=== PATIENT | male | born 1985 | race American Indian/Alaskan Native ===

== ENCOUNTER 2022-01-10 21:16 | Emergency (ER) | payer OTHER ==
[~2022-01-10] VITALS: Ht 167.6 cm; Wt 98.9 kg
[2022-01-10 21:31] VITALS: BP 178/99
--- NOTE | 2022-01-10 21:36 | NUR ---
PT TAKEN TO BED 3.
--- NOTE | 2022-01-10 22:16 | NUR ---
JIMMY, FLU AND STREP SWABS COLLECTED AND WALKED TO LAB
--- NOTE | 2022-01-10 23:05 | NUR ---
36 Y.O. M BIB SELF C/O SORE THROAT X2HRS. STATE HR IS ALWAYS ELEVATED D/T [place]. DRY COUGH, DENIES A FEVER. NO SOB NOR CHEST PAIN. NO N/V/D. A&OX4, SKIN INTACT, VITALS WNL FOR PT AND STEADY GAIT. HX:DM RX:METFROMIN ALLERGY:ERYTHROMYCIN
[2022-01-10] MEDS ORDERED: TAM75 PO (23:08)
[2022-01-10 23:45] VITALS: BP 178/99
--- NOTE | 2022-01-10 23:46 | NUR ---
Patient discharged with v/s stable. Written and verbal after care instructions given and explained. Patient alert, oriented and verbalized understanding of instructions. Ambulatory with steady gait. All questions addressed prior to discharge. ID band removed. Patient advised to follow up with PMD. Rx of TAMIFUL given. Patient educated on indication of medication including possible reaction and side effects. Opportunity to ask questions provided and answered.
== END 2022-01-10 23:45 | disposition home or self-care (01) ==
LOC: MED 21:16
DX: J10.1 Influenza due to other identified influenza virus with other respiratory manifestations (principal); Z20.822 Contact with and (suspected) exposure to COVID-19; E11.9 Type 2 diabetes mellitus without complications; Z79.4 Long term (current) use of insulin; Z79.899 Other long term (current) drug therapy; Z88.1 Allergy status to other antibiotic agents
CPT/HCPCS: 87081; 99283

== ENCOUNTER 2022-10-17 18:36 | Emergency (ER) | payer OTHER ==
[~2022-10-17] VITALS: Ht 172.7 cm; Wt 83.9 kg
[~2022-10-17 18:36] MED LIST: TAM75 PO
[2022-10-17 19:12] VITALS: BP 131/88
[2022-10-17] MEDS ORDERED: LIDOCAINE 5% 1 EA PATCH TP ONE (19:30)
[2022-10-17] MEDS ORDERED: KETOROLAC 15 MG/ML VIAL IM ONE (19:30)
[2022-10-17] MEDS ORDERED: ACETAMINOPHEN 325 MG TAB PO ONE (19:30)
[2022-10-17] MEDS ORDERED: LID5T TP (19:38)
[2022-10-17] MEDS ORDERED: METH-1681 PO (19:38)
--- NOTE | 2022-10-17 20:48 | NUR ---
Patient discharged with v/s stable. Written and verbal after care instructions given and explained. Patient alert, oriented and verbalized understanding of instructions. Ambulatory with steady gait. All questions addressed prior to discharge. ID band removed. Patient advised to follow up with PMD. Rx of LIDODERM AND ROBAXIN given. Patient educated on indication of medication including possible reaction and side effects. Opportunity to ask questions provided and answered.
== END 2022-10-17 20:40 | disposition home or self-care (01) ==
LOC: MED 18:36
DX: M54.17 Radiculopathy, lumbosacral region (principal); E11.9 Type 2 diabetes mellitus without complications; Z88.8 Allergy status to other drugs, medicaments and biological substances; Z79.4 Long term (current) use of insulin; Z79.899 Other long term (current) drug therapy
CPT/HCPCS: 96372; 99283; J1885

== ENCOUNTER 2022-10-22 08:29 | Emergency (ER) | payer OTHER ==
[~2022-10-22] VITALS: Ht 165.1 cm; Wt 82.6 kg
[~2022-10-22 08:29] MED LIST changes: +LID5T TP; +METH-1681 PO
[2022-10-22 08:34] VITALS: BP 128/90
[2022-10-22] MEDS ORDERED: NAPR-1704 PO (09:01)
[2022-10-22] MEDS ORDERED: TRAM-748 PO ×2 (09:01→09:02)
[2022-10-22] MEDS: KETOROLAC 60 MG/2 ML VIAL IM ONE (09:16)
--- NOTE | 2022-10-22 09:17 | NUR ---
[place], using phone to call pmd. able to turn to sides by self. awake alert x 4
[2022-10-22 10:29] VITALS: BP 138/68
[2022-10-22] MEDS: ONDANSETRON 4 MG ODT PO ONE (10:29)
[2022-10-22] MEDS: MORPHINE SULFATE 10 MG/ML VIAL IM ONE (10:29)
== END 2022-10-22 10:05 | disposition home or self-care (01) ==
LOC: MED 08:29
DX: M54.42 Lumbago with sciatica, left side (principal); E11.9 Type 2 diabetes mellitus without complications; Z79.899 Other long term (current) drug therapy; Z79.1 Long term (current) use of non-steroidal anti-inflammatories (NSAID); Z88.1 Allergy status to other antibiotic agents
CPT/HCPCS: 96372; 99284; J1885; J2270; Q0162